=== PATIENT | female | born 1965 | race African-American/Black ===

== ENCOUNTER → 2017-06-24 | Outpatient (CLI) | payer BC ==
[2017-06-24 08:13] LABS: BASOPHILS % 0.9 % (0.0-2.0); EOSINOPHILS % 1.9 % (0.0-5.0); HEMATOCRIT. 41.1 % (36.0-48.0); HEMOGLOBIN. 13.5 g/dL (12.0-16.0); LYMPHOCYTES % 34.2 % (20.0-50.0); MEAN CORPUSCULAR HEMOGLOBIN 26.6 pg (28.0-32.0); MEAN CORPUSCULAR VOLUME 81.2 fL (81.0-99.0); MEAN PLATELET VOLUME 7.9 fl (7.4-10.4); MONOCYTES % 5.7 % (2.0-8.0); NEUTROPHILS % 57.3 % (40.0-76.0); PLATELET 295 x1000/uL (130-400); RED BLOOD CELL COUNT 5.06 mill/uL (4.2-5.4); RED CELL DISTRIBUTION WIDTH 14.8 % (11.6-14.6)
[2017-06-24 08:20] LABS: GLUCOSE URINE 3+ (NEGATIVE); KETONES URINE NEGATIVE (NEGATIVE); LEUKOCYTE ESTERASE URINE NEGATIVE (NEGATIVE); NITRITE URINE NEGATIVE (NEGATIVE); OCCULT BLOOD URINE NEGATIVE (NEGATIVE); PH URINE 5.5 (4.5-8.0); PROTEIN URINE NEGATIVE (NEGATIVE); SPECIFIC GRAVITY URINE 1.027 (1.005-1.030); UROBILINOGEN URINE 0.2 E.U./dL (0.2-1.0)
[2017-06-24 08:21] LABS: CLARITY URINE CLEAR (CLEAR); COLOR URINE YELLOW (YELLOW)
[2017-06-24 09:06] LABS: CARBON DIOXIDE 29 mEq/L (21-32); CHLORIDE 104 mEq/L (98-107); HDL CHOLESTEROL 69 mg/dL (40-59); LDL CHOLESTEROL 112 mg/dL (5-100)
== END | disposition home or self-care (01) ==
LOC: LAB 07:22
PROVIDERS: ATTEND Internal Medicine
DX: Z00.01 Encounter for general adult medical examination with abnormal findings (principal); I10 Essential (primary) hypertension; E11.9 Type 2 diabetes mellitus without complications; E78.5 Hyperlipidemia, unspecified
CPT/HCPCS: 36415; 80053; 80061; 81001; 83036; 84443; 85025

== ENCOUNTER → 2025-03-13 | Outpatient (CLI) | payer BC ==
[2025-03-13 09:23] LABS: BASOPHILS % 0.3 % (0.0-2.0); EOSINOPHILS % 1.1 % (0.0-5.0); HEMATOCRIT. 39.7 % (36.0-48.0); LYMPHOCYTES % 30.5 % (20.0-50.0); MEAN CORPUSCULAR HEMOGLOBIN 27.1 pg (28.0-32.0); MEAN CORPUSCULAR HGB CONC 32.8 g/dL (31.0-37.0); MEAN CORPUSCULAR VOLUME 82.5 fL (81.0-99.0); MEAN PLATELET VOLUME 7.9 fl (7.4-10.4); MONOCYTES % 5.1 % (2.0-8.0); PLATELET 306 x1000/uL (130-400); RED BLOOD CELL COUNT 4.81 mill/uL (4.2-5.4); RED CELL DISTRIBUTION WIDTH 13.8 % (11.6-14.6); WHITE BLOOD COUNT 5.2 x1000/uL (4.5-11.0)
[2025-03-13 09:33] LABS: CHLORIDE 101 mEq/L (98-107); POTASSIUM 4.4 mEq/L (3.5-5.1); SODIUM 138 mEq/L (136-145)
[2025-03-13 09:34] LABS: CARBON DIOXIDE 30 mEq/L (21-32)
[2025-03-13 09:35] LABS: CALCIUM 9.7 mg/dL (8.7-10.4)
[2025-03-13 09:39] LABS: CREATININE 0.8 mg/dL (0.6-1.0); GLUCOSE 115 mg/dL (70-105)
[2025-03-13 09:40] LABS: LDL CHOLESTEROL 86 mg/dL (5-100); TRIGLYCERIDE 86 mg/dL (0-150); UREA NITROGEN BLOOD 12 mg/dL (9-23)
[2025-03-13 09:41] LABS: ALANINE AMINOTRANSFERASE 10 IU/L (10-49); ALBUMIN 4.5 g/dL (3.2-4.8); ASPARTATE AMINOTRANSFERASE 14 IU/L (<34); CHOLESTEROL 175 mg/dL (<200); HDL CHOLESTEROL 61 mg/dL (>65)
[2025-03-13 09:42] LABS: BILIRUBIN TOTAL 0.3 mg/dL (0.1-1.0); PROTEIN TOTAL 8.2 g/dL (6.0-8.3)
[2025-03-13 09:44] LABS: THYROID STIMULATING HORMONE 1.94 uIU/mL (0.55-4.78)
== END | disposition home or self-care (01) ==
LOC: LAB 08:07
PROVIDERS: ATTEND Internal Medicine
DX: C43.31 Malignant melanoma of nose (principal); I10 Essential (primary) hypertension; E11.9 Type 2 diabetes mellitus without complications; E78.5 Hyperlipidemia, unspecified; E55.9 Vitamin D deficiency, unspecified
CPT/HCPCS: 36415; 80053; 80061; 82306; 83036; 84443; 85025

== ENCOUNTER 2025-04-21 09:25 | Emergency (ER) | payer BC ==
[~2025-04-21] VITALS: Ht 165.1 cm; Wt 90.0 kg
[2025-04-21 10:01] VITALS: O2SAT 100
[2025-04-21 10:28] LABS: BASOPHILS % 0.4 % (0.0-2.0); EOSINOPHILS % 1.2 % (0.0-5.0); HEMATOCRIT. 39.5 % (36.0-48.0); LYMPHOCYTES % 35.9 % (20.0-50.0); MEAN CORPUSCULAR HEMOGLOBIN 27.3 pg (28.0-32.0); MEAN CORPUSCULAR HGB CONC 32.9 g/dL (31.0-37.0); MEAN PLATELET VOLUME 7.7 fl (7.4-10.4); MONOCYTES % 5.4 % (2.0-8.0); NEUTROPHILS % 57.1 % (40.0-76.0); PLATELET 298 x1000/uL (130-400); RED BLOOD CELL COUNT 4.76 mill/uL (4.2-5.4); WHITE BLOOD COUNT 4.9 x1000/uL (4.5-11.0)
[2025-04-21 10:41] LABS: CHLORIDE 103 mEq/L (98-107); POTASSIUM 3.8 mEq/L (3.5-5.1); SODIUM 139 mEq/L (136-145)
[2025-04-21 10:42] LABS: CALCIUM 9.8 mg/dL (8.7-10.4); CARBON DIOXIDE 28 mEq/L (21-32)
[2025-04-21 10:47] LABS: CREATININE 0.8 mg/dL (0.6-1.0); GLUCOSE 108 mg/dL (70-105); UREA NITROGEN BLOOD 12 mg/dL (9-23)
[2025-04-21 10:51] LABS: TROPONIN I HIGH SENSITIVITY < 4 ng/L (3.0-34)
[2025-04-21] MEDS: SODIUM CHLORIDE 0.9% 1,000 ML IV ONE (10:54)
[2025-04-21] MEDS ORDERED: ONDA4TAB50 MT (11:14)
[2025-04-21] MEDS ORDERED: FLUT9.9S BOTHNSTRLS (11:14)
[2025-04-21] MEDS ORDERED: MECL-299 MT (11:14)
[2025-04-21 11:58] VITALS: BP 151/90; PULSE 92; RESP 20; TEMP 36.9; O2SAT 100
[2025-04-21] MEDS: MECLIZINE 25MG TABLET PO ONE (12:00)
== END 2025-04-21 12:01 | disposition home or self-care (01) ==
LOC: ER 09:25
DX: H81.10 Benign paroxysmal vertigo, unspecified ear (principal); J30.9 Allergic rhinitis, unspecified; I10 Essential (primary) hypertension; E11.9 Type 2 diabetes mellitus without complications; Z79.4 Long term (current) use of insulin; Z98.890 Other specified postprocedural states
CPT/HCPCS: 99285; 71045; 80048; 82962; 83880; 85025; 84484; 36415; 93005; J8597; J7030

== ENCOUNTER 2025-06-21 07:37 | Emergency (ER) | payer BC ==
[~2025-06-21 07:37] MED LIST: FLUT9.9S BOTHNSTRLS; MECL-299 MT; ONDA4TAB50 MT
[2025-06-21 08:33] VITALS: PULSE 112; RESP 20; O2SAT 98
[2025-06-21] MEDS ORDERED: ACET-2708 MT (10:25)
== END 2025-06-21 09:00 | disposition left against medical advice (07) ==
LOC: ER 08:28
DX: R51.9 Headache, unspecified (principal); J02.9 Acute pharyngitis, unspecified; Z53.21 Procedure and treatment not carried out due to patient leaving prior to being seen by health care provider

== ENCOUNTER 2025-06-21 08:32 | Emergency (ER) | payer BC ==
[~2025-06-21] VITALS: Ht 162.6 cm; Wt 89.0 kg
[2025-06-21 08:34] VITALS: O2SAT 99
[2025-06-21] MEDS: DEXAMETHASONE 10 MG/ML VIAL IV ONE (09:31)
[2025-06-21] MEDS: ACETAMINOPHEN 500MG TABLET PO ONE (09:31)
[2025-06-21 10:10] LABS: INFLUENZA TYPE A Presumptive Negative (Pres. Neg.)
[2025-06-21 10:11] LABS: INFLUENZA TYPE B Presumptive Negative (Pres. Neg.)
[2025-06-21] MEDS ORDERED: ACET-2708 MT (10:25)
[2025-06-21 10:36] VITALS: BP 124/76; PULSE 94; RESP 19; TEMP 37.1; O2SAT 97
== END 2025-06-21 10:40 | disposition home or self-care (01) ==
LOC: ER 08:42
DX: U07.1 COVID-19 (principal); E11.9 Type 2 diabetes mellitus without complications; I10 Essential (primary) hypertension; E78.00 Pure hypercholesterolemia, unspecified; Z98.51 Tubal ligation status; Z98.890 Other specified postprocedural states
CPT/HCPCS: 99283; 96374; 87426; 87430; 87070; 87804 ×2; J1100

== ENCOUNTER 2025-09-20 09:18 | Emergency (ER) | payer BC, OTHER ==
[~2025-09-20] VITALS: Ht 162.6 cm; Wt 85.0 kg
[~2025-09-20 09:18] MED LIST changes: +ACET-2708 MT
[2025-09-20 09:49] VITALS: O2SAT 99
[2025-09-20] MEDS: HYDROCODONE/ACETAMINOPHEN 5/325MG TABLET PO ONE (10:38)
[2025-09-20] MEDS: IBUPROFEN 400MG TABLET PO ONE (10:38)
[2025-09-20] MEDS: ONDANSETRON 4MG ODT PO ONE (10:38)
[2025-09-20] MEDS: BACITRACIN ZINC OINT UDPKT TOP ONE (10:43)
[2025-09-20 12:28] VITALS: TEMP 37.1
[2025-09-20] MEDS ORDERED: TOPUD PO (12:38)
[2025-09-20] MEDS ORDERED: IBUP-2028 MT (12:38)
[2025-09-20 13:03] VITALS: BP 138/87; PULSE 79; RESP 18; O2SAT 100
== END 2025-09-20 13:04 | disposition home or self-care (01) ==
LOC: ER 09:18
DX: S80.211A Abrasion, right knee, initial encounter (principal); E11.9 Type 2 diabetes mellitus without complications; I10 Essential (primary) hypertension; E78.5 Hyperlipidemia, unspecified; W19.XXXA Unspecified fall, initial encounter; Y93.89 Activity, other specified; Y92.89 Other specified places as the place of occurrence of the external cause; Y99.0 Civilian activity done for income or pay
CPT/HCPCS: 99284; 73030; 73562; Q0162

== ENCOUNTER → 2025-10-18 | Outpatient (CLI) | payer OTHER ==
[~2025-10-18] MED LIST changes: +IBUP-2028 MT; +TOPUD PO
== END | disposition home or self-care (01) ==
LOC: MRI 14:35
PROVIDERS: ATTEND Family Medicine Adult Medicine
DX: M17.11 Unilateral primary osteoarthritis, right knee (principal); M25.561 Pain in right knee; M25.861 Other specified joint disorders, right knee; M25.461 Effusion, right knee; Z91.81 History of falling
CPT/HCPCS: 73718